=== PATIENT | male | born 1940 | race Native Hawaiian/Other Pacific Islander ===

== ENCOUNTER → 2016-07-22 | Outpatient (CLI) | payer MEDICARE, OTHER | LOC: GMAL 17:18 | PROVIDERS: ATTEND Family Medicine | DX: D50.8 Other iron deficiency anemias (principal) ==

== ENCOUNTER → 2016-08-31 | Outpatient (CLI) | payer MEDICARE, OTHER | LOC: GMA 18:15 | PROVIDERS: ATTEND Family Medicine | DX: N39.0 Urinary tract infection, site not specified (principal) ==

== ENCOUNTER → 2017-01-13 | Outpatient (CLI) | payer MEDICARE, OTHER | END | disposition home or self-care (01) | LOC: BFHH 16:36 | PROVIDERS: ATTEND Family Medicine | DX: R30.0 Dysuria (principal); R35.0 Frequency of micturition ==

== ENCOUNTER → 2017-02-11 | Outpatient (CLI) | payer MEDICARE, OTHER ==
--- NOTE | 2017-02-14 18:35 | RAD ---
EXAM DESCRIPTION: Shoulder,Right 2 or More Views CLINICAL HISTORY: SHOULDER PAIN COMPARISON: None Available. TECHNIQUE: Three views of the right shoulder. FINDINGS: High riding humerus indicates high likelihood of significant rotator cuff pathology. 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 Joint space narrowing in subchondral eburnation with marginal osteophyte formation noted. Chronic rib deformities on the right from previous fractures. IMPRESSION: 1. Severe arthritic changes right glenohumeral joint and likely rotator cuff tear Electronically signed by: Valeriano Guillen MD 02/14/2017 6:34 PM CDT
--- NOTE | 2017-02-14 19:18 | CT ---
EXAM DESCRIPTION: CT Chest w/Contrast CLINICAL HISTORY: LOWER LOBE INFILTRATE COMPARISON: Chest x-ray 01/16/2016. TECHNIQUE: Spiral-axial scans at 5.0 mm intervals through the lungs and thorax with IV contrast. Coronal and sagittal 2.0 Mm reconstructions. No adverse reactions. Total Exam DLP: 808.13 mGy-cm. This exam was performed according to our departmental dose-optimization program which includes automated exposure control, adjustment of the mA and/or kV according to patient size and/or use of iterative reconstruction technique; to reduce radiation dose to as low as reasonably achievable (ALARA). FINDINGS: Mosaic appearance of the lung parenchyma. Bibasilar pleural thickening with pleural calcification in the bases and also lateral right pleura. Parenchymal scarring in the bilateral lower lobes. No abnormal nodules. No pneumothorax. Elevated left hemidiaphragm. Pacemaker in customary position. Pacing wires in the right atrium and right ventricle. Normal enhancement of the thyroid gland. No soft tissue masses in the mediastinum or hilum. No abnormal contrast enhancement. Proximal pulmonary arteries bilaterally including the lobar arteries show no filling defects. Atherosclerotic changes in the descending aorta and aortic arch. Aortic valve placement. Pericardial surgical clips. Ectasia of the descending thoracic aorta. 7 mm radiodense stone in the gallbladder and a second larger one more distally. Two similar sized stones in the gallbladder neck. Common bile duct may be dilated. Fatty infiltration of the liver. Included spleen shows normal size and enhancement adrenal glands are unremarkable. 5 cm cyst in the upper right kidney and another 1 cm cyst inferior. Included left kidney shows subcentimeter cortical cysts. Ectasia of the included abdominal aorta and significant calcification of the origins of renal artery celiac axis and SMA. No free fluid or free air in the included peritoneal space. Multiple thoracic vertebral body compression type fractures from T11 to L3. Intervertebral discs at these levels show degenerative gas formation. Varying Degrees of spondylolisthesis at these levels. Old posterior right upper rib fractures. Mid and lower left lateral rib fractures of unknown age. IMPRESSION: 1. Appearance of the lung parenchyma may be public health representative of the emphysematous lung. Bibasilar scarring with no acute infiltrate. Basilar and lateral right pleural calcifications could be evidence of pneumoconiosis or asbestosis. 2. Aortic root Stent and/or aortic valve repair. Standard positioning of pacemaker and pacing wires. 3. Multiple stones in the gallbladder. Possible dilated CBD. Correlate with clinical findings, consider right upper quadrant ultrasound. Multiple bilateral renal cysts largest is 5 cm on the right. 4. Multiple thoracic vertebral body compression type fractures of unknown age with associated degenerated discs., T11-L3 levels. Also spondylolisthesis. Electronically signed by: Joaquin Hansen MD 02/14/2017 7:16 PM CDT
== END | disposition home or self-care (01) ==
LOC: CT 09:12
PROVIDERS: ATTEND Family Medicine
DX: J18.9 Pneumonia, unspecified organism (principal)

== ENCOUNTER → 2017-05-11 | Outpatient (CLI) | payer MEDICARE, OTHER | END | disposition home or self-care (01) | LOC: GMAL 14:26 | PROVIDERS: ATTEND Family Medicine | DX: D50.9 Iron deficiency anemia, unspecified (principal) ==

== ENCOUNTER → 2017-08-20 | Outpatient (CLI) | payer MEDICARE, OTHER ==
--- NOTE | 2017-08-23 12:04 | CT ---
EXAM DESCRIPTION: Chest w/o Contrast CLINICAL HISTORY: OTHER [employer]ER[employer]Y COMPARISON: Multiple prior chest CTs. The most recent is dated February 11, 2017. The oldest comparison is dated May 30, 2013. Multiple comparisons were made in between. TECHNIQUE: Non contrast multidetector CT imaging of the chest. Multiplanar reconstructions were provided. High-resolution chest CT protocol was performed. This exam was performed according to our departmental dose-optimization program which includes automated exposure control, adjustment of the mA and/or kV according to patient size and/or use of iterative reconstruction technique. FINDINGS: Lungs and large airways: Trachea and proximal bronchi are patent. No endobronchial lesions are demonstrated. Mild circumferential bronchial wall thickening is seen throughout the lungs bilaterally. There is slight increased reticular opacity noted within the basal portions of the left lower lobe. Superimposed tree-in-bud opacity and a small groundglass attenuation noted within a similar distribution. This appearance has a waxing and waning temporal course that is largely stable to slightly worsened with respect to the most recent comparison. No concerning acute airspace disease is demonstrated. chronic/cicatricial atelectasis of the right lower lobe is seen. No evidence for chronic interstitial lung disease. No secondary interlobular septal thickening is seen to suggest pulmonary fibrosis. No chronic interstitial nodularity. No concerning pulmonary nodules. Pleura: Extensive pleural base calcifications seen throughout the thorax bilaterally. Heart and pericardium: Heart size is normal. TAVR hardware. Mediastinum and nicho: No mediastinal hilar lymphadenopathy is demonstrated. Chest wall and lower neck: Left chest wall battery pack for pacemaker/electrocardiac device. Vessels: Stable in appearance. Bones: Old bilateral rib fracture deformities are present. Some these rib fracture deformities are nonunion. Numerous anterior wedge compression fracture deformities of the thoracic spine are seen. Stable superior endplate fracture of T3 with approximately 30% anterior central height loss. Anterior wedge compression fracture deformity of T11 with approximately 50% anterior height loss. Primarily affects the superior endplate. No pedicle involvement or posterior buckling. T12 fracture shows progressive height loss of approximately 70-80% primarily affecting the superior endplate. There is retropulsion of the superior endplate approximately 0.4 cm into the central spinal canal which otherwise is patent. No pedicle involvement is demonstrated. Superior endplate fracture of the L1 vertebral body is seen with mild retropulsion. L1 fracture exhibits approximately 50-60% central height loss which is progressed from comparison. Superior endplate fracture of the L2 vertebral body with nearly 80% central height loss and minimal retropulsion of the superior endplate. Superior endplate fracture of the L3 vertebral body is partially seen. Upper abdomen: Simple cholelithiasis is again seen. Upper abdomen is stable in appearance. Gastric tube is noted. Benign cyst of the right kidney. IMPRESSION: No evidence for pulmonary fibrosis to suggest adverse chronic drug reaction. Waxing and waning area of tree-in-bud and central groundglass/acinar opacity of the left lower lobe consistent with chronic atypical infectious disease. Mycobacterial versus fungal versus viral. This may be subclinical. Anterior wedge compression fracture deformities of T3, T11, T12, L1, L2 and L3. T11, T12 and L1 fractures appear nonhealed. Correlate for point tenderness over the lower thoracic/upper lumbar spine. Extensive pleural calcification can be seen with asbestos exposure or prior intervention/pleurodesis. Additional chronic findings described above. Electronically signed by: Moris Colby MD 08/23/2017 12:03 PM [facility]
== END ==
LOC: CT 14:00
PROVIDERS: ATTEND Internal Medicine
DX: Z79.899 Other long term (current) drug therapy (principal); M48.55XA Collapsed vertebra, not elsewhere classified, thoracolumbar region, initial encounter for fracture

== ENCOUNTER → 2018-01-18 | Outpatient (CLI) | payer MEDICARE, OTHER | LOC: GMAL 15:08 | PROVIDERS: ATTEND Family Medicine | DX: D50.9 Iron deficiency anemia, unspecified (principal); Z79.899 Other long term (current) drug therapy ==

== ENCOUNTER → 2018-02-08 | Outpatient (CLI) | payer MEDICARE, OTHER | LOC: GMAJS 14:25 | PROVIDERS: ATTEND Physician Assistant | DX: R35.0 Frequency of micturition (principal) ==